=== PATIENT | male | born 2000 | race Caucasian/White ===

== ENCOUNTER 2020-05-24 01:42 | Observation (INO) | payer MEDICAID ==
[~2020-05-24] VITALS: Ht 165.1 cm; Wt 93.0 kg
[2020-05-24 04:06] LABS: BASOPHILS % 0.4 % (0.0-2.0); EOSINOPHILS % 3.9 % (0.0-5.0); HEMATOCRIT. 40.8 % (42.0-52.0); HEMOGLOBIN. 13.2 g/dL (14.0-18.0); LYMPHOCYTES % 13.8 % (20.0-50.0); MEAN CORPUSCULAR HEMOGLOBIN 26.2 pg (28.0-32.0); MEAN CORPUSCULAR VOLUME 80.8 fL (80.0-94.0); MEAN PLATELET VOLUME 7.9 fl (7.4-10.4); NEUTROPHILS % 75.9 % (40.0-76.0); PLATELET 263 x1000/uL (130-400); RED BLOOD CELL COUNT 5.05 mill/uL (4.7-6.1); RED CELL DISTRIBUTION WIDTH 14.3 % (11.6-14.6)
[2020-05-24 04:10] LABS: CHLORIDE 109 mEq/L (98-107)
[2020-05-24 04:13] LABS: PROTHROMBIN TIME 10.9 sec (9.6-11.0)
[2020-05-24] MEDS ORDERED: IOHEXOL-300 100 ML BOTTLE ONE (04:52)
[2020-05-24] MEDS ORDERED: SODIUM CHLORIDE 0.9% 1,000 ML IV ONE (07:00)
[2020-05-24] MEDS ORDERED: LEVOFLOXACIN 750MG PREMIX 150 ML IV ONE (07:00)
[2020-05-24] MEDS ORDERED: METRONIDAZOLE 500 MG PREMIX 100 ML IV ONE (07:00)
[2020-05-24] MEDS ORDERED: SKIN ADHESIVE 0.7 GM EA TOP ONE (09:21)
[2020-05-24] MEDS ORDERED: BUPIVACAINE HCL 0.5% (5MG/ML) 50ML ONE (09:21)
[2020-05-24 09:27] LABS: CLARITY URINE CLEAR (CLEAR); COLOR URINE YELLOW (YELLOW); KETONES URINE NEGATIVE (NEGATIVE); LEUKOCYTE ESTERASE URINE NEGATIVE (NEGATIVE); NITRITE URINE NEGATIVE (NEGATIVE); OCCULT BLOOD URINE NEGATIVE (NEGATIVE); PH URINE 5.5 (4.5-8.0); PROTEIN URINE NEGATIVE (NEGATIVE); UROBILINOGEN URINE 0.2 E.U./dL (0.2-1.0)
[2020-05-24 09:35] LABS: SPECIFIC GRAVITY URINE 1.075 (1.005-1.030)
[2020-05-24] MEDS ORDERED: DEXT 5%/0.45% NACL KCL 20MEQ/L 1,000 ML IV SCH (10:15)
[2020-05-24] MEDS ORDERED: MORPHINE SULFATE 2 MG/ML CPJ (NOT FOR IM USE) IV PRN (10:15)
[2020-05-24] MEDS ORDERED: MORPHINE SULFATE 4 MG/ML CPJ (NOT FOR IM USE) IV PRN (10:15)
[2020-05-24] MEDS ORDERED: HYDROCODONE/ACETAMINOPHEN 5/325MG TABLET PO PRN ×2 (10:15)
[2020-05-24] MEDS ORDERED: ONDANSETRON HCL 4MG/2ML INJ IV PRN ×2 (10:15→11:15)
[2020-05-24] MEDS ORDERED: LABETALOL 5MG/ML SYR 20 MG/4 ML SYRINGE IV PRN (11:15)
[2020-05-24] MEDS ORDERED: HYDROMORPHONE HCL/PF 2MG/ML CPJ IV PRN (11:15)
[2020-05-24] MEDS ORDERED: MEPERIDINE HCL/PF 25MG/ML CPJ IV PRN (11:15)
[2020-05-24 13:21] VITALS: BP 113/59
[2020-05-24 16:00] VITALS: BP 111/62
[2020-05-24 20:00] VITALS: BP 113/73
[2020-05-25] VITALS: BP 102/57
[2020-05-25 04:00] VITALS: BP 101/53
[2020-05-25 06:50] LABS: BASOPHILS % 0.1 % (0.0-2.0); HEMATOCRIT. 39.3 % (42.0-52.0); HEMOGLOBIN. 12.6 g/dL (14.0-18.0); LYMPHOCYTES % 13.5 % (20.0-50.0); MEAN CORPUSCULAR VOLUME 81.3 fL (80.0-94.0); MEAN PLATELET VOLUME 8.2 fl (7.4-10.4); MONOCYTES % 4.6 % (2.0-8.0); NEUTROPHILS % 81.8 % (40.0-76.0); PLATELET 259 x1000/uL (130-400); RED BLOOD CELL COUNT 4.84 mill/uL (4.7-6.1); RED CELL DISTRIBUTION WIDTH 14.3 % (11.6-14.6)
[2020-05-25 07:03] LABS: CHLORIDE 110 mEq/L (98-107)
[2020-05-25 07:11] LABS: LDL CHOLESTEROL 72 mg/dL (5-100)
[2020-05-25 07:12] LABS: HDL CHOLESTEROL 53 mg/dL (40-59)
[2020-05-25 08:00] VITALS: BP 103/67
[2020-05-25] MEDS ORDERED: DEXT 5%/0.45% NACL KCL 20MEQ/L 1,000 ML IV SCH (08:00)
[2020-05-25 12:00] VITALS: BP 104/66
[2020-05-25] MEDS ORDERED: HYDR-4001 MT (12:31)
[2020-05-25 13:40] VITALS: BP 104/66
== END 2020-05-25 14:15 | disposition home or self-care (01) ==
LOC: ER 01:42 → ORIP 06:50 → INTOOBSV 06:50 → 6EST 13:21
PROVIDERS: ADMIT Internal Medicine; ATTEND Internal Medicine
DX: K35.80 Unspecified acute appendicitis (principal); Z20.822 Contact with and (suspected) exposure to COVID-19; R19.7 Diarrhea, unspecified; R11.2 Nausea with vomiting, unspecified
CPT/HCPCS: 36415; 44970; 71045; 74177; 80053; 80061; 81003; 83690; 84443; 85025; 85610; 87426; 88304; 93005; 96361; 96365; 96367; 99285; G0378; J1170; J1956; J2175; J2405; J3490; J7030; Q9967; J2270